=== PATIENT | female | born 1955 | race Caucasian/White ===

== ENCOUNTER 2018-04-17 17:18 | Emergency (ER) | END 2018-04-17 20:23 | disposition home or self-care (01) ==

== ENCOUNTER 2019-05-14 16:54 | Emergency (ER) | payer OTHER ==
[~2019-05-14] VITALS: Wt 75.9 kg
[~2019-05-14 16:54] MED LIST: ASPI-535 PO; AZIT250T PO; GABA300C16 PO; HYDR-3498 PO; HYDR12.53 PO; IBUP-1542 PO; JANUVIA 100MG PO; LEVO25CA; METF-849 PO; NPH10OT LEFT EAR; TRAM-408 PO
[2019-05-14 17:05] VITALS: Wt 75.9 kg
--- NOTE | 2019-05-14 20:52 | ERD ---
ER Documentation Chief Complaint Chief Complaint BIB EMS, AT MD OFFICE W HTN AND BORDERLINE ST ELEVATION IN EKG HPI 63-year-old female with a history of hypertension and diabetes presenting from her primary care doctor's office for hypertension and headache. She was there for normal checkup today. She was noted to have hypertension and was complaining of a bilateral aching headache, 3 out of 10, nonradiating, with no focal deficits. EKG was done and was noted to be abnormal. For this reason, PCP called ambulance. Patient states that she never experienced any chest pain or shortness of breath. She is feeling well now. She is compliant with all of her medications. ROS All systems reviewed and are negative except as per history of present illness. Medications Home Meds Active Scripts Ibuprofen* (Ibuprofen*) 600 Mg Tablet, 600 MG PO Q8 for PAIN, #30 TAB Prov:JOMAR BRIAN MD 04/17/18 Ibuprofen* (Motrin*) 600 Mg Tab, 600 MG PO Q6, #30 TAB Prov:ROSLYN LAZARO 06/27/16 Neomycin/Polymyxin/Hydrocort* (Cortisporin* Otic) 10 Ml Susp, 4 DROP LEFT EAR QID for 7 Days, EA Prov:ROSLYN LAZARO 06/27/16 Hydrocodone Bit-Acetaminophen* ([place]*) 5-325 Mg Tab, 1 TAB PO Q6 PRN for PAIN, #15 TAB Prov:ROSLYN LAZARO 06/13/15 Reported Medications Cholecalciferol (Vitamin D3) (Vitamin D-3) 2,000 Unit Tablet, 2000 UNIT PO BID for 90 Days 05/14/19 Atorvastatin* (Atorvastatin*) 80 Mg Tablet, 80 MG PO QHS for 90 Days, #90 05/14/19 Amlodipine Besylate* (Amlodipine Besylate*) 5 Mg Tablet, 5 MG PO QAM for 90 Days, #90 05/14/19 Furosemide* (Furosemide*) 20 Mg Tablet, 20 MG PO QAM 05/14/19 Lisinopril* (Lisinopril*) 40 Mg Tablet, 40 MG PO QAM for 90 Days, #90 05/14/19 Insulin Glargine,Hum.rec.anlog (Basaglar Kwikpen U-100) 100 Unit/1 Ml Insuln.pen, 25 UNIT SQ QHS for 30 Days 05/14/19 Loratadine (Allergy) 10 Mg Tablet, 10 MG PO QM for 30 Days, #30 05/14/19 Hydrochlorothiazide* (Hydrochlorothiazide*) 25 Mg Tab, 25 MG PO QAM for 90 Days, #90 05/14/19 Levothyroxine Sodium* (Levothyroxine Sodium*) 137 Mcg Tablet, 137 MG PO QAM for 90 Days, #90 05/14/19 Gabapentin* (Gabapentin*) 300 Mg Capsule, PO TID, 0 Refills 03/29/12 Metformin* (Glucophage*) 500 Mg Tab, 1000 PO BID, 0 Refills 12/06/11 Discontinued Reported Medications Aspirin Ec (Aspir 81) 81 Mg Tablet.dr, 81 MG PO 09/28/13 Hydrochlorothiazide (Hydrochlorothiazide) 12.5 Mg Capsule, PO DAILY 09/28/13 Tramadol Hcl (Rybix Odt) 50 Mg Tab.rapdis, PO 09/28/13 Levothyroxine Sodium (Tirosint) 25 Mcg Capsule, DAILY 03/29/12 [Januvia 100MG] 100 MG TABLET No Conflict Check, PO DAILY, 0 Refills 05/28/11 Discontinued Scripts Azithromycin* (Zithromax*) 250 Mg Tablet, 250 MG PO .ZPACK DIRECTED, #6 TAB TAKE 500 MG (2 TABS) THE FIRST DAY THEN 250 MG (1 TAB) DAYS 2-5 Prov:ROSLYN LAZARO 06/27/16 Allergies Allergies: Coded Allergies: Penicillins (Unverified Allergy, Unknown, 05/14/19) PMhx/Soc History of Surgery: Yes (GALL BLADDER,) Anesthesia Reaction: No Hx Neurological Disorder: No Hx Respiratory Disorders: No Hx Cardiac Disorders: Yes (HTN) Hx Psychiatric Problems: No Hx Miscellaneous Medical Probl: Yes (HIGH CHOLESTEROL, DM, THYROID ) Hx Alcohol Use: No Hx Substance Use: No Hx Tobacco Use: No Smoking Status: Never smoker FmHx Family History: diabetes Physical Exam Vitals Vital Signs Date Temp Pulse Resp B/P (MAP) Pulse Ox O2 O2 Flow FiO2 Time Delivery Rate 05/14/19 64 16 150/71 99 Nasal 23:17 (97) Cannula 05/14/19 74 16 197/103 97 Room Air 22:45 (134) 05/14/19 74 16 185/95 98 Room Air 21:30 (125) 05/14/19 75 16 186/100 97 Room Air 20:50 (128) 05/14/19 97.6 78 16 217/103 99 17:05 (141) Physical Exam Const: No acute distress Head: Atraumatic Eyes: Normal Conjunctiva ENT: Normal External Ears, Nose and Mouth. Neck: Full range of motion. No meningismus. Resp: Clear to auscultation bilaterally Cardio: Regular rate and rhythm, no murmurs. 2+ distal pulses in all 4 extremities Abd: Soft, non tender, non distended. Normal bowel sounds Skin: No petechiae or rashes Back: No midline or flank tenderness Ext: No cyanosis, trace bilateral lower extremity edema Neur: Awake and alert, no facial asymmetry, normal speech, moving all extremities Psych: Normal Mood and Affect Result Diagram: 05/14/19205405/14/192054 Results 24 hrs Laboratory Tests Test 05/14/19 20:55 White Blood Count 8.0 10^3/ul Red Blood Count 3.85 10^6/ul Hemoglobin 10.4 g/dl Hematocrit 30.7 % Mean Corpuscular Volume 79.7 fl Mean Corpuscular Hemoglobin 27.0 pg Mean Corpuscular Hemoglobin Concent 33.9 g/dl Red Cell Distribution Width 14.4 % Platelet Count 276 10^3/UL Mean Platelet Volume 11.2 fl Immature Granulocytes % 0.300 % Neutrophils % 64.5 % Lymphocytes % 24.0 % Monocytes % 8.1 % Eosinophils % 2.6 % Basophils % 0.5 % Nucleated Red Blood Cells % 0.0 /100WBC Immature Granulocytes # 0.020 10^3/ul Neutrophils # 5.2 10^3/ul Lymphocytes # 1.9 10^3/ul Monocytes # 0.7 10^3/ul Eosinophils # 0.2 10^3/ul Basophils # 0.0 10^3/ul Nucleated Red Blood Cells # 0.0 10^3/ul Sodium Level 136 mmol/L Potassium Level 3.4 mmol/L Chloride Level 98 mmol/L Carbon Dioxide Level 31 mmol/L Anion Gap 7 Blood Urea Nitrogen 22 mg/dl Creatinine 1.30 mg/dl Est Glomerular Filtrat Rate mL/min 42 mL/min Glucose Level 269 mg/dl Calcium Level 8.7 mg/dl Troponin I 0.018 ng/ml Current Medications Medications Dose Sig/Iglesia Start Time Status Last (Trade) Ordered Route PRN Stop Time Admin Dose Reason Admin Labetalol 20 mg ONCE ONCE 05/14/19 DC 05/14/19 HCl IV 23:00 05/14/19 22:47 (Labetalol) 23:01 Procedures/MDM EMERGENT LABS AND DIAGNOSTIC STUDIES: Lab Results above were reviewed and interpreted by me. CBC: Mild anemia, no evidence of infection BMP: Elevation of creatinine, elevated from baseline, consistent with acute renal insufficiency. Hyperglycemic without evidence of acidosis. No evidence of clinically significant electrolyte abnormality Troponin within normal limits, not indicative of cardiac ischemia 12-lead EKG was interpreted by Miguel De La Rosa MD: Normal Sinus Rhythm with ventricular rate of 74 beats per minute Normal axis Normal intervals Inferior lateral T wave inversions, concerning for ischemia. No STEMI Radiology Results as interpreted by Radiology below were reviewed by SKarri De La Rosa MD: Chest x-ray shows no acute abnormalities Initial Nursing notes reviewed. Previous Medical Records requested via the Electronic Health Record. EMERGENCY DEPARTMENT COURSE / MEDICAL DECISION MAKING: Patient is presenting with hypertension and abnormal EKG from her primary care physician's office. She is denying any chest pain or shortness of breath. I have a low suspicion for ACS although she did have an abnormal EKG. I have no baseline EKG to compare it to. Her labs are notable for acute elevation of cr eatinine, elevated when compared to previous labs done here this year. I did recommend admission for further work-up for acute renal failure and stabilization of her hypertension. However patient has declined admission and would rather follow-up with her primary care doctor for outpatient nephrology referral and medication adjustments. She was encouraged to return for any worsening symptoms. Critical Care Time: 40 minutes Treatments/Evaluations: Close monitoring and treatment of unstable vital signs, cardiorespiratory, and neurologic status, while maintaining tight balance of fluid, respiratory, and cardiac interventions. This time includes discussing the case with the patient and the patients family. This time does not include all procedures stated elsewhere in this record. This time also includes reviewing old records, labs and radiological studies. This time includes examining and re- examining the patient. Additionally, this time also includes arranging care with admitting and consulting physicians. Patient's blood pressure was elevated (>120/80) but appears stable without evidence of hypertensive emergency or urgency. The patient was counseled about the risks of hypertension and urged to pursue outpatient monitoring and therapy within a week with their primary care physician. Departure Diagnosis: Primary Impression: Hypertensive urgency Additional Impressions: Acute renal insufficiency Neuropathic pain of both legs Abnormal EKG Condition: MARYBETH Vivas MD May 14, 2019 20:52
[2019-05-14] MEDS ORDERED: ATOR-2 PO (22:59)
[2019-05-14] MEDS ORDERED: INSU100I33 SQ (22:59)
[2019-05-14] MEDS ORDERED: LEVO137T3 PO (22:59)
[2019-05-14] MEDS ORDERED: LISI40TA3 PO (22:59)
[2019-05-14] MEDS ORDERED: LORA-1026 PO (22:59)
[2019-05-14] MEDS ORDERED: CHOL200056 PO (22:59)
[2019-05-14] MEDS ORDERED: FURO20TA3 PO (22:59)
[2019-05-14] MEDS ORDERED: HYDR25TA6 PO (22:59)
[2019-05-14] MEDS ORDERED: AMLO-145 PO (22:59)
[2019-05-14] MEDS ORDERED: LABETALOL HCL 20MG INJ IV ONE (23:00)
[2019-05-15 01:22] VITALS: BP 175/82; PULSE 65; RESP 16
[2019-05-15] MEDS ORDERED: NACL 0.9% 3 ML SYG IV SCH (07:30)
[2019-05-15] MEDS ORDERED: GLUCOSE GEL 15 GRAM TUBE PO PRN ×2 (07:30)
[2019-05-15] MEDS ORDERED: NITROGLYCERIN (SL) 0.4 MG TAB SL PRN (07:30)
[2019-05-15] MEDS ORDERED: ONDANSETRON 4 MG INJ IV PRN (07:30)
[2019-05-15] MEDS ORDERED: GLUCOSE GEL 15 GRAM TUBE BUCCAL PRN (07:30)
[2019-05-15] MEDS ORDERED: DEXTROSE 50% 50 ML SYRINGE IV PRN ×2 (07:30)
[2019-05-15] MEDS ORDERED: GLUCAGON 1 MG INJ IM PRN (07:30)
[2019-05-15] MEDS ORDERED: HYDROCODONE/APAP (5/325) TAB PO PRN (07:30)
[2019-05-15] MEDS ORDERED: ALBUTEROL/IPRATROPIUM (NEB) 3 ML AMP HHN PRN (07:30)
[2019-05-15] MEDS ORDERED: ACETAMINOPHEN 325 MG TAB PO PRN (07:30)
[2019-05-15] MEDS ORDERED: LEVOTHYROXINE 137 MCG TAB PO SCH (08:00)
[2019-05-15] MEDS ORDERED: LORATADINE 10 MG TAB PO SCH (09:00)
[2019-05-15] MEDS ORDERED: HEPARIN 5,000 UNIT/1 ML VIAL SC SCH (09:00)
[2019-05-15] MEDS ORDERED: GABAPENTIN 300 MG CAP PO SCH (09:00)
[2019-05-15] MEDS ORDERED: AMLODIPINE 5 MG TAB PO SCH (09:00)
[2019-05-15] MEDS ORDERED: HYDROCHLOROTHIAZIDE 25 MG TAB PO SCH (09:00)
--- NOTE | 2019-05-15 09:03 | HP ---
Date/Time of Note Date/Time of Note DATE: 05/15/19 TIME: 09:00 Assessment/Plan VTE Prophylaxis Pharmacological prophylaxis: heparin Lines/Catheters IV Catheter Type (from Nrsg): Sal[place] Lock Assessment/Plan Assessment/Plan 1. Hypertensive urgency: Adjust BP meds as needed 2. Abnormal EKG: Trend troponin, 2D echo and cardiology consult 3. Diabetes: Insulin while in-house 4. Hypothyroidism: Continue home med Result Diagram: 05/14/19205405/14/192054 Results 24hrs Laboratory Tests Test 05/14/19 20:55 White Blood Count 8.0 Red Blood Count 3.85 L Hemoglobin 10.4 L Hematocrit 30.7 L Mean Corpuscular Volume 79.7 L Mean Corpuscular Hemoglobin 27.0 L Mean Corpuscular Hemoglobin Concent 33.9 Red Cell Distribution Width 14.4 Platelet Count 276 Mean Platelet Volume 11.2 H Immature Granulocytes % 0.300 Neutrophils % 64.5 Lymphocytes % 24.0 Monocytes % 8.1 Eosinophils % 2.6 Basophils % 0.5 Nucleated Red Blood Cells % 0.0 Immature Granulocytes # 0.020 Neutrophils # 5.2 Lymphocytes # 1.9 Monocytes # 0.7 Eosinophils # 0.2 Basophils # 0.0 Nucleated Red Blood Cells # 0.0 Sodium Level 136 Potassium Level 3.4 L Chloride Level 98 Carbon Dioxide Level 31 Anion Gap 7 Blood Urea Nitrogen 22 H Creatinine 1.30 H Est Glomerular Filtrat Rate mL/min 42 L Glucose Level 269 H Calcium Level 8.7 Troponin I 0.018 HPI/ROS Admit Date/Time Admit Date/Time Hx of Present Illness This is a 63-year-old female with a history of hypertension, diabetes, dyslipidemia, hypothyroidism who was sent for a headache and elevated blood pressure. Upon presentation to the ER she is found blood pressure of 217/103. Reportedly patient also had abnormal EKG with borderline ST elevation. So she presented to the ER EKG shows T wave inversion no ST elevation or depression. Her creatinine was found to be 1.3, which is normal. PMH/Family/Social Past Medical History Past Surgical Hx: other Family History Significant Family History: no pertinent family hx Social History Alcohol Use: none Smoking Status: Never smoker Drug Use: none Exam Constitutional: other (No acute distress) Head: normocephalic, atraumatic Eyes: EOMI, PERRL Respiratory: clear to auscultation, normal air movement Cardiovascular: regular rate and rhythm Gastrointestinal: soft Extremities: normal pulses Medications Current Medications IV Flush (NS 3 ml) 3 ml PER PROTOCOL IV ; Start 05/15/19 at 07:30 Ondansetron HCl (Zofran Inj) 4 mg Q6H PRN IV NAUSEA/VOMITING; Start 05/15/19 at 07:30 Nitroglycerin (Nitroglycerin (Sl Tab) 0.4 Mg) 1 tab Q5M PRN SL .CHEST PAIN; Start 05/15/19 at 07:30 Acetaminophen (Tylenol Tab) 650 mg Q6H PRN PO .PAIN 1-3 OR TEMP; Start 05/15/19 at 07:30 Heparin Sodium (Porcine) (Heparin (5000 Units/1ml)) 5,000 unit Q12 SC ; Start 05/15/19 at 09:00 Albuterol/ Ipratropium (Duoneb) 3 ml Q2H RESP THERAPY PRN HHN SHORTNESS OF BREATH; Start 05/15/19 at 07:30 Amlodipine Besylate (Norvasc) 5 mg QAM PO ; Start 05/15/19 at 09:00 Atorvastatin Calcium (Lipitor) 80 mg QHS PO ; Start 05/15/19 at 21:00 Gabapentin (Neurontin) 300 mg TID PO ; Start 05/15/19 at 09:00 Hydrochlorothiazide (Hydrochlorothiazide) 25 mg QAM PO ; Start 05/15/19 at 09:00 Acetaminophen/ Hydrocodone Bitart ([place] (5/325)) 1 tab Q6H PRN PO PAIN; Start 05/15/19 at 07:30 Levothyroxine Sodium (Synthroid) 137 mcg DAILY@0600 PO ; Start 05/15/19 at 08:00 Loratadine (Claritin) 10 mg DAILY PO ; Start 05/15/19 at 09:00 Insulin Glargine (Lantus) 25 units QHS SC ; Start 05/15/19 at 21:00 Miscellaneous Information 1 ea NOTE XX ; Start 05/15/19 at 07:30 Glucose (Glutose) 15 gm Q15M PRN PO DECREASED GLUCOSE; Start 05/15/19 at 07:30 Glucose (Glutose) 22.5 gm Q15M PRN PO DECREASED GLUCOSE; Start 05/15/19 at 07:30 Dextrose (D50w Syringe) 25 ml Q15M PRN IV DECREASED GLUCOSE; Start 05/15/19 at 07:30 Dextrose (D50w Syringe) 50 ml Q15M PRN IV DECREASED GLUCOSE; Start 05/15/19 at 07:30 Glucagon (Glucagen) 1 mg Q15M PRN IM DECREASED GLUCOSE; Start 05/15/19 at 07:30 Glucose (Glutose) 15 gm Q15M PRN BUCCAL DECREASED GLUCOSE; Start 05/15/19 at 07:30 Coded Allergies: Penicillins (Unverified Allergy, Unknown, 05/14/19) Social History Smoking Status: Never smoker Exam/Review of Systems Vital Signs Vitals Vital Signs Date Temp Pulse Resp B/P (MAP) Pulse Ox O2 O2 Flow FiO2 Time Delivery Rate 05/15/19 65 16 175/82 98 Room Air 01:22 (113) 05/14/19 97.6 17:05 ROSE MARIE SKY MD May 15, 2019 09:03
[2019-05-15] MEDS ORDERED: INSULIN GLARGINE [LANtus] 3 ML PEN SC SCH (21:00)
[2019-05-15] MEDS ORDERED: ATORVASTATIN 80 MG TAB PO SCH (21:00)
[2019-05-15] MEDS ORDERED: INSULIN GLARGINE [LANTus] (100 UNITS/ML) SYG SC SCH (21:00)
== END 2019-05-15 00:50 | disposition home or self-care (01) ==
LOC: E/R 16:54
DX: I16.0 Hypertensive urgency (principal); I10 Essential (primary) hypertension; N28.9 Disorder of kidney and ureter, unspecified; G57.93 Unspecified mononeuropathy of bilateral lower limbs; R94.111 Abnormal electroretinogram [ERG]; E11.9 Type 2 diabetes mellitus without complications; Z79.4 Long term (current) use of insulin
CPT/HCPCS: 36415; 71045; 80048; 84484; 85025; 93005; 96374; Z7502; Z7610